=== PATIENT | female | born 1950 | race Caucasian/White ===

== ENCOUNTER → 2019-09-30 | Outpatient (CLI) | payer MEDICARE ==
[~2019-09-30] MED LIST: ACET-1600 PO; ASPI81TA45 PO; ATOR20TA37 PO; CALC-534 PO; CBD TP; CHOL10003 PO; HYDR200T72 PO; KETO10DR5 EACHEYE; LATA2.5D3 EACHEYE; LEUC10TA PO; METF500T17 PO; MULT-516 PO; OMEG1CAP39 PO; OMEP40CA42 PO; POTASSIUM PO; THC TP; VALS80TA3 PO
[2019-09-30 14:01] LABS: MEAN CORPUSCULAR HEMOGLOBIN 32.9 pg (27.0-34.8); MEAN CORPUSCULAR VOLUME 99.7 fL (80-100); MEAN PLATELET VOLUME 8.5 fL (7.4-10.4); PLATELET COUNT 153 x10^3/uL (130-400); RED BLOOD COUNT 4.05 x10^6/uL (3.82-5.3); RED CELL DISTRIBUTION WIDTH 14.1 % (9.6-15.2)
[2019-09-30 14:03] LABS: BASOPHILS # (AUTO) 0.01 x10^3/uL (0-0.1); BASOPHILS % (AUTO) 0 % (0-1); EOSINOPHILS % (AUTO) 0 % (1-7); LYMPHOCYTES # (AUTO) 0.72 x10^3/uL (1-3.4); LYMPHOCYTES % (AUTO) 13 % (22-44); MONOCYTES # (AUTO) 0.53 x10^3/uL (0.2-0.8); MONOCYTES % (AUTO) 10 % (2-9); NEUTROPHILS # (AUTO) 4.16 x10^3/uL (1.8-6.8); NEUTROPHILS % (AUTO) 77 % (42-75)
[2019-09-30 14:04] LABS: ALANINE AMINOTRANSFERASE 33 U/L (12-78); ALBUMIN 4.1 g/dL (3.4-5.0); ANION GAP 5 mmol/L (5-15); CALCIUM 8.3 mg/dL (8.5-10.1); CHLORIDE 106 mmol/L (98-107); CREATININE 0.95 mg/dL (0.55-1.02); MD NO
[2019-09-30 14:06] LABS: ALKALINE PHOSPHATASE 78 U/L (45-117); BILIRUBIN,TOTAL 0.2 mg/dL (0.2-1.0); TOTAL PROTEIN 7.3 g/dL (6.4-8.2)
== END | disposition home or self-care (01) ==
LOC: STAR 12:50
PROVIDERS: ATTEND Orthopaedic Surgery
DX: Z01.818 Encounter for other preprocedural examination (principal); M17.11 Unilateral primary osteoarthritis, right knee; R94.31 Abnormal electrocardiogram [ECG] [EKG]
CPT/HCPCS: 36415; 80053; 85025; 87081; 87147; 93005

== ENCOUNTER 2019-10-12 08:27 | Observation (INO) | payer MEDICARE ==
[~2019-10-12] VITALS: Ht 157.5 cm; Wt 93.0 kg
[~2019-10-12 08:27] MED LIST changes: +ROPIvacaine/PF 0.2%, 20 ML ONE; +SODIUM CHLORIDE 0.9% 50 ML ONE; +TRANEXAMIC ACID 100 MG/ML, 10ML ONE; +VANCOMYCIN 1,000 MG ONE
[2019-10-12] MEDS ORDERED: LACTATED RINGERS 1,000 ML IV SCH (09:28)
[2019-10-12] MEDS ORDERED: CHLORHEXIDINE 15 ML UDC MM ONE (09:30)
[2019-10-12] MEDS ORDERED: CHLORHEXIDINE 15 ML UDC ONE (09:31)
[2019-10-12] MEDS ORDERED: FENTANYL PF 250 MCG/5ML ONE (09:43)
[2019-10-12] MEDS ORDERED: MIDAZOLAM 1 MG/ML, 2ML ONE (09:43)
[2019-10-12] MEDS ORDERED: SODIUM CHLORIDE 0.9% 50 ML ONE (10:12)
[2019-10-12] MEDS ORDERED: KETOROLAC 60 MG/2 ML ONE (10:13)
[2019-10-12] MEDS ORDERED: TAMSULOSIN 0.4 MG CAP.ER.24H ONE (10:19)
[2019-10-12] MEDS ORDERED: SCOPOLAMINE 1MG PATCH TD ONE (10:19)
[2019-10-12] MEDS ORDERED: SCOPOLAMINE 1MG PATCH TD SCH (10:30)
[2019-10-12] MEDS ORDERED: OXYcodone IR 5MG TABLET PO ONE (10:30)
[2019-10-12] MEDS ORDERED: FAMOTIDINE 20 MG TABLET PO ONE (10:30)
[2019-10-12] MEDS ORDERED: TAMSULOSIN 0.4 MG CAP.ER.24H PO ONE (10:30)
[2019-10-12] MEDS ORDERED: ACETAMINOPHEN 500 MG TABLET PO ONE (10:30)
[2019-10-12] MEDS ORDERED: PROPOFOL 10 MG/ML, 20ML ONE ×2 (10:58)
[2019-10-12] MEDS ORDERED: GLYCOPYRROLATE 0.2MG/1ML, 5ML ONE (10:58)
[2019-10-12] MEDS ORDERED: SUCCINYLCHOLINE 20 MG/ML, 10ML ONE (10:58)
[2019-10-12] MEDS ORDERED: KETOROLAC 30 MG/1 ML ONE (11:00)
[2019-10-12] MEDS ORDERED: ONDANSETRON 2MG/ML, 2ML ONE (11:00)
[2019-10-12] MEDS ORDERED: EPINEPHRINE 1 MG/ML, 1ML INFIL ONE (11:19)
[2019-10-12] MEDS ORDERED: CEFAZOLIN 1,000 MG ONE ×2 (11:51)
[2019-10-12] MEDS ORDERED: HYDROmorphone 1 MG/ML, 1ML INJ IVPush PRN ×2 (12:00→13:00)
[2019-10-12] MEDS ORDERED: PROMETHAZINE 25 MG/ML, 1ML IVPush PRN (12:00)
[2019-10-12] MEDS ORDERED: FENTANYL PF 100 MCG/2ML ONE (12:36)
[2019-10-12] MEDS ORDERED: OXYcodone 5 MG/5 ML ORAL.SOL UDC ONE (12:36)
[2019-10-12] MEDS: FENTANYL PF 100 MCG/2ML IV PRN ×2 (12:39→12:56)
[2019-10-12] MEDS ORDERED: HYDROmorphone 1 MG/ML, 1ML INJ ONE (12:41)
[2019-10-12] MEDS ORDERED: MEPERIDINE/PF 25MG/ML,1ML ONE (12:45)
[2019-10-12] MEDS ORDERED: MEPERIDINE/PF 25MG/0.5ML IVPush PRN (13:00)
[2019-10-12] MEDS: KETOROLAC 30 MG/1 ML IV SCH ×2 (13:00→22:26)
[2019-10-12] MEDS ORDERED: DIAZEPAM 5 MG TABLET PO PRN (13:00)
[2019-10-12] MEDS: ACETAMINOPHEN 500 MG TABLET PO SCH ×2 (13:00→18:27)
[2019-10-12] MEDS ORDERED: DEXAMETHASONE 4 MG/ML, 1ML IVPush SCH (13:00)
[2019-10-12] MEDS ORDERED: PSYLLIUM PACKET PO PRN (13:00)
[2019-10-12] MEDS ORDERED: PROMETHAZINE 12.5 MG SUPP PR PRN (13:00)
[2019-10-12] MEDS ORDERED: ONDANSETRON 2MG/ML, 2ML IVPush PRN (13:00)
[2019-10-12] MEDS ORDERED: DIPHENHYDRAMINE 25 MG CAPSULE PO PRN (13:00)
[2019-10-12] MEDS ORDERED: TRANEXAMIC ACID 1,000 MG in SODIUM CHLORIDE 0.9% 100 ML IVPB ONE (13:30)
[2019-10-12] MEDS: OXYcodone/APAP 5/325MG TABLET PO PRN ×2 (16:22→22:27)
[2019-10-12] MEDS: INSULIN REGULAR 100 UNITS/ML, 3ML VIAL SQ-INSULIN SCH ×2 (17:30→22:42)
[2019-10-12] MEDS: CEFAZOLIN PMX 1GM/50ML 50 ML IVPB SCH (18:27)
[2019-10-12 19:15] VITALS: BP 127/72
[2019-10-12] MEDS ORDERED: ATORVASTATIN 20 MG TABLET PO SCH (21:00)
[2019-10-12] MEDS ORDERED: LATANOPROST OPHTH 0.005%, 2.5ML EACHEYE SCH (21:00)
[2019-10-12] MEDS: DOCUSATE 100 MG CAPSULE PO SCH (22:25)
[2019-10-13 00:19] VITALS: BP 112/58
[2019-10-13] MEDS: ACETAMINOPHEN 500 MG TABLET PO SCH ×2 (01:00→05:40)
[2019-10-13] MEDS: OXYcodone/APAP 5/325MG TABLET PO PRN ×3 (02:30→11:42)
[2019-10-13] MEDS: CEFAZOLIN PMX 1GM/50ML 50 ML IVPB SCH (02:47)
[2019-10-13 04:08] VITALS: BP 130/74
[2019-10-13] MEDS: KETOROLAC 30 MG/1 ML IV SCH (05:40)
[2019-10-13] MEDS ORDERED: DEXAMETHASONE 4 MG/ML, 1ML IVPush SCH (06:00)
[2019-10-13] MEDS ORDERED: ASPIRIN 81 MG TABLET EC PO SCH ×2 (06:00→09:00)
[2019-10-13] MEDS: INSULIN REGULAR 100 UNITS/ML, 3ML VIAL SQ-INSULIN SCH ×2 (07:00→11:42)
[2019-10-13 07:30] VITALS: BP 136/72
[2019-10-13] MEDS: DOCUSATE 100 MG CAPSULE PO SCH (08:27)
[2019-10-13] MEDS ORDERED: PANTOPRAZOLE 40MG TABLET PO SCH (09:00)
[2019-10-13] MEDS ORDERED: CHOLECALCIFEROL 1,000 UNIT TABLET PO SCH (09:00)
[2019-10-13] MEDS ORDERED: metFORMIN 500 MG TABLET PO SCH (09:00)
[2019-10-13] MEDS ORDERED: MULTIVITAMIN 1 TABLET PO SCH (09:00)
[2019-10-13] MEDS ORDERED: VALSARTAN 80 MG TABLET PO SCH (09:00)
[2019-10-13 11:46] VITALS: BP 111/59
== END 2019-10-13 12:45 | disposition home or self-care (01) ==
LOC: OUT 08:27 → ORIP 12:38 → 4NE 17:39 → DCLOUNGE 10-13 12:32
PROVIDERS: ADMIT Orthopaedic Surgery; ATTEND Orthopaedic Surgery
DX: Z03.818 Encounter for observation for suspected exposure to other biological agents ruled out (principal); M17.11 Unilateral primary osteoarthritis, right knee; M06.9 Rheumatoid arthritis, unspecified; E11.9 Type 2 diabetes mellitus without complications; I10 Essential (primary) hypertension; Z79.899 Other long term (current) drug therapy; Z96.651 Presence of right artificial knee joint
CPT/HCPCS: 20680; 27447; 73560; 82962; 87635; 96365; 96366; 96375; 96376; 97161; C1713; C1776; G0378; J0171; J0330; J0690; J1170; J1885; J2175; J2250; J2405; J2704; J2795; J3010; J3370; J7120; J1815